=== PATIENT | male | born 1970 | race African-American/Black ===

== ENCOUNTER 2017-03-31 14:16 | Emergency (ER) | payer BC, OTHER ==
[2017-03-31 14:25] VITALS: BP 151/87
--- NOTE | 2017-03-31 15:04 | RADIOLOGY REPORT (SQ) ---
EXAM DESCRIPTION: CT HEAD WITHOUT COMPLETED DATE/TIME: 03/31/2017 2:50 pm REASON FOR STUDY: right facial droop possible bells? COMPARISON: None. TECHNIQUE: Axial images acquired through the brain without intravenous contrast. Images reviewed wi th bone, brain and subdural windows. Images stored on PACS. All CT scanners at this facility use dose modulation, iterative reconstruction, and/or weight based d osing when appropriate to reduce radiation dose to as low as reasonably achievable (ALARA). [facility]: Dose Right [facility]: CareDose [facility]: Dose Right [facility]: Teradose 4D [facility]: Summly RADIATION DOSE: 64.61 mGy. LIMITATIONS: None. FINDINGS: VENTRICLES: Normal size and contour. CEREBRUM: No masses. No hemorrhage. No midline shift. Normal dexter/white matter differentiation. N o evidence for acute infarction. CEREBELLUM: No masses. No hemorrhage. No alteration of density. No evidence for acute infarction. EXTRAAXIAL SPACES: No fluid collections. No masses. ORBITS AND GLOBE: No intra- or extraconal masses. Normal contour of globe without masses. CALVARIUM: No fracture. PARANASAL SINUSES: No fluid or mucosal thickening. SOFT TISSUES: No mass or hematoma. OTHER: No other significant finding. IMPRESSION: NORMAL BRAIN CT WITHOUT CONTRAST. TECHNICAL DOCUMENTATION: JOB ID: [id number] Quality ID # [id number]: Final reports with documentation of one or more dose reduction techniques (e.g., Au tomated exposure control, adjustment of the mA and/or kV according to patient size, use of iterative reconstruction technique) 2010 [employer]- All Rights Reserved
[2017-03-31] MEDS ORDERED: VALACYCLOVIR HCL 500 MG TABLET PO ONE (15:08)
[2017-03-31] MEDS ORDERED: PREDNISONE 20 MG TABLET PO ONE (15:08)
--- NOTE | 2017-03-31 15:15 | ER Document Report ---
ED General - General Chief Complaint: S/S of Possible Stroke Stated Complaint: LEFT FACE NUMBNESS Time Seen by Provider: 03/31/17 14:34 TRAVEL OUTSIDE OF THE [place] IN LAST 30 DAYS: No - HPI Patient complains to provider of: Facial weakness Notes: Patient coming in for a 3 day history of right facial weakness. Patient states he is unable to smile unable to close his right eye. Right eye is watering. Patient states having some mild numbness to the left side of his face. Patient works as a flatbed truck driver states no medical problems that he is aware of the not taking medications. Patient denies any fevers denies any trauma denies any recent illnesses. - Related Data Allergies/Adverse Reactions: No Known Allergies Allergy (Unverified 03/31/17 14:34) Past Medical History - Social History Smoking Status: Current Every Day Smoker Chew tobacco use (# tins/day): No Frequency of alcohol use: None Drug Abuse: None Family History: Reviewed & Not Pertinent Patient has suicidal ideation: No Patient has homicidal ideation: No Renal/ Medical History: Denies: Hx Peritoneal Dialysis Skin Medical History: Comment Only Hx MRSA - MRSA 02/13 THIGH Past Surgical History: Reports: Hx Appendectomy - Immunizations Hx Diphtheria, Pertussis, Tetanus Vaccination: Yes Review of Systems - Review of Systems Constitutional: No symptoms reported EENT: No symptoms reported Cardiovascular: No symptoms reported Respiratory: No symptoms reported Gastrointestinal: No symptoms reported Genitourinary: No symptoms reported Male Genitourinary: No symptoms reported Musculoskeletal: No symptoms reported Skin: No symptoms reported Hematologic/Lymphatic: No symptoms reported Neurological/Psychological: Other - Weakness -: Yes All other systems reviewed and negative Physical Exam - Vital signs Vitals: Temp Pulse Resp BP Pulse Ox 97.8 F 63 20 151/87 H 97 03/31/17 14:22 03/31/17 14:22 03/31/17 14:22 03/31/17 14:22 03/31/17 14:22 Interpretation: Normal - General General appearance: Appears well, Alert - HEENT Head: Normocephalic, Atraumatic Eyes: Normal Pupils: PERRL - Respiratory Respiratory status: No respiratory distress Chest status: Nontender Breath sounds: Normal Chest palpation: Normal - Cardiovascular Rhythm: Regular Heart sounds: Normal auscultation Murmur: No - Abdominal Inspection: Normal Distension: No distension Bowel sounds: Normal Tenderness: Nontender Organomegaly: No organomegaly - Back Back: Normal, Nontender - Extremities General upper extremity: Normal inspection, Nontender, Normal color, Normal ROM , Normal temperature General lower extremity: Normal inspection, Nontender, Normal color, Normal ROM , Normal temperature, Normal weight bearing. No: Mar's sign - Neurological Neuro grossly intact: Yes Cognition: Normal Orientation: AAOx4 [place] Coma Scale Eye Opening: Spontaneous [place] Coma Scale Verbal: Oriented Dru Coma Scale Motor: Obeys Commands [place] Coma Scale Total: 15 Speech: Normal Cranial nerves: Other - With a asymmetrical smile patient is unable to close his right eye fully of the left patient is unable to raise his right eyebrow. Motor strength normal: LUE, RUE, LLE, RLE Sensory: Normal - Psychological Associated symptoms: Normal affect, Normal mood - Skin Skin Temperature: Warm Skin Moisture: Dry Skin Color: Normal Course - Re-evaluation Re-evalutation: 03/31/17 20:01 Scan of the head is negative more consistent examination with Chauhan's palsy. Patient was placed on antiviral steroids and given PCP and neurology follow-up. - Vital Signs Vital signs: Temp Pulse Resp BP Pulse Ox 97.8 F 63 20 151/87 H 97 03/31/17 14:22 03/31/17 14:22 03/31/17 14:22 03/31/17 14:22 03/31/17 14:22 Discharge - Discharge Clinical Impression: Chauhan palsy Condition: Good Disposition: HOME, SELF-CARE Instructions: Chauhan's Palsy ([facility]), Steroid Medication Additional Instructions: Your CT scan does not show any signs of a stroke. Your symptoms are more consistent with Chauhan's palsy. Please make sure to take medication as prescribed. I will highly recommend following up with your family physician. He may also want to follow-up with a neurologist he may follow-up with her doctor provided. Return to ER symptoms worsen. Prescriptions: Prednisone [Deltasone] 60 mg PO DAILY #24 tablet Valacyclovir HCl [Valacyclovir] 1,000 mg PO TID #30 tablet Forms: Return to Work
== END 2017-03-31 15:35 | disposition home or self-care (01) ==
LOC: ER 14:16
DX: G51.0 Bell's palsy (principal); F17.200 Nicotine dependence, unspecified, uncomplicated; Z86.14 Personal history of Methicillin resistant Staphylococcus aureus infection
CPT/HCPCS: 99285; 70450; J7512